=== PATIENT | male | born 1975 | race African-American/Black ===

== ENCOUNTER 2017-08-15 03:13 | Emergency (ER) | payer OTHER ==
[~2017-08-15] VITALS: Ht 170.2 cm; Wt 102.1 kg
--- NOTE | ~2017-08-15 | EKG ---
[address] [place] [address] [place] [address] ELECTROCARDIOGRAM REPORT Name: ISAÍAS SEE Room #: DEP Obdulia#: [id number] Admission: 08/15/17 Attend Phys: Discharge: 08/15/17 Date of : 79 Report #: [id number] THIS REPORT FOR: //name// [facility] ED Test Date: 2017-08-15 Test Time: 03:54:13 Pat Name: ISAÍAS SEE Department: Room: Gender: Janitor Caretaker: : 1975 Requested By: iNcci Michael Order Number: [id number] MD: Conrado Iverson Measurements Intervals [place] Rate: 75 P: 91 SD: 140 QRS: -19 QRSD: 84 T: 8 QT: 345 QTc: 386 Interpretive Statements Sinus rhythm Probable left atrial enlargement Borderline left axis deviation ST elev, probable normal early repol pattern No previous ECG available for comparison Electronically Signed On 08-15-2017 10:25:34 [employer]IOLOGICAL EQUIPMENT SPECIALIST by Conrado Iverson [email or web address] <ELECTRONICALLY SIGNED> By: Conrado Iverson MD 08/15/17 1025 [id number] Conrado Iverson MD /[email or web address]
[2017-08-15 03:49] LABS: ABSOLUTE NEUTROPHILS 5.7 thou/uL (1.4-8.2); BASOPHILS 0.6 % (0.0-2.0); EOSINOPHILS 1.9 % (0.0-3.0); HEMATOCRIT 46.3 % (42.0-52.0); HEMOGLOBIN 16.1 gm/dL (14.0-18.0); LYMPHOCYTES 23.5 % (24.0-44.0); MCH 29.1 pg (26.0-34.0); MCHC 34.8 g/dL (28.0-37.0); MCV 83.6 fL (80.0-100.0); MONOCYTES 8.7 % (1.0-8.0); PLATELET COUNT 235 thou/uL (150-400); POLYS 65.3 % (36.0-66.0); RBC 5.54 mil/uL (4.50-6.00); RDW 14.6 % (10.5-14.5); WBC 8.7 thou/uL (4.0-11.0)
[2017-08-15 03:59] LABS: ANION GAP 9 mmol/L (7-16); BUN 8 mg/dL (7-18); CALCIUM 9.2 mg/dL (8.5-10.1); CHLORIDE 99 mmol/L (98-107); CO2 25 mmol/L (21-32); CREATININE 0.9 mg/dL (0.7-1.3); GLUCOSE 367 mg/dL (74-106); POTASSIUM 3.8 mmol/L (3.5-5.1); SODIUM 133 mmol/L (136-145)
[2017-08-15 04:07] LABS: ALBUMIN 3.3 g/dL (3.4-5.0); DIRECT BILIRUBIN 0.1 mg/dL (<0.1-0.3); LIPASE 1002 U/L (73-393); SGOT 14 U/L (15-37); SGPT 24 U/L (30-65); TOTAL BILIRUBIN 0.5 mg/dL (<0.1-1.0); TOTAL PROTEIN 7.9 g/dL (6.4-8.2); TROPONIN-I < 0.04 ng/mL (<0.06)
[2017-08-15] MEDS ORDERED: NORCO 5-325 TA1 EACH PO (05:12)
== END 2017-08-15 05:34 | disposition home or self-care (01) ==
LOC: ER 03:13
PROVIDERS: Emergency Medicine
DX: K85.90 Acute pancreatitis without necrosis or infection, unspecified (principal)

== ENCOUNTER 2017-09-01 22:47 | Emergency (ER) | payer OTHER ==
[~2017-09-01] VITALS: Ht 172.7 cm; Wt 93.0 kg
[~2017-09-01 22:47] MED LIST: NORCO 5-325 TA1 EACH PO
[2017-09-01] MEDS ORDERED: NAPROSYN500 MG PO (23:37)
== END 2017-09-02 00:01 | disposition home or self-care (01) ==
LOC: ER 22:47
DX: T33.532A Superficial frostbite of left finger(s), initial encounter (principal); T33.521A Superficial frostbite of right hand, initial encounter; E11.9 Type 2 diabetes mellitus without complications; X31.XXXA Exposure to excessive natural cold, initial encounter; Y93.89 Activity, other specified; Y92.89 Other specified places as the place of occurrence of the external cause; Y99.8 Other external cause status

== ENCOUNTER 2017-12-19 22:56 | Emergency (ER) | payer OTHER ==
[~2017-12-19] VITALS: Ht 172.7 cm; Wt 104.3 kg
[~2017-12-19 22:56] MED LIST changes: +NAPROSYN500 MG PO
[2017-12-20] MEDS ORDERED: KEFLEX500 M1 PO (01:55)
[2017-12-20 02:40] VITALS: BP 160/85
== END 2017-12-20 02:37 | disposition home or self-care (01) ==
LOC: ER 22:56
DX: S61.412A Laceration without foreign body of left hand, initial encounter (principal); W31.9XXA Contact with unspecified machinery, initial encounter; Y93.89 Activity, other specified; Y92.89 Other specified places as the place of occurrence of the external cause; Y99.8 Other external cause status

== ENCOUNTER 2018-01-06 00:31 | Emergency (ER) | payer OTHER ==
[~2018-01-06] VITALS: Ht 172.7 cm; Wt 108.9 kg
[~2018-01-06 00:31] MED LIST changes: +KEFLEX500 M1 PO
[2018-01-06 03:25] VITALS: BP 146/81
== END 2018-01-06 03:26 | disposition home or self-care (01) ==
LOC: ER 00:31
DX: S01.112D Laceration without foreign body of left eyelid and periocular area, subsequent encounter (principal); W26.8XXD Contact with other sharp object(s), not elsewhere classified, subsequent encounter